=== PATIENT | female | born 1960 | race Caucasian/White ===

== ENCOUNTER 2018-09-28 13:54 | Observation (INO) ==
[2018-09-28 14:10] LABS: Bilirubin,Urine Negative (Negative); Blood,Urine Negative (Negative); Clarity,Urine Clear (Clear); Glucose,Urine (UA) Normal (Normal); Ketones,Urine Negative (Negative); Leukocyte Esterase,Urine Negative (Negative); Nitrite,Urine Negative (Negative); PH,Urine 8.5 pH Units (5.0-8.0); Protein,Urine Negative (Neg-Trace); Specific Gravity,Urine 1.015 (1.010-1.025); Urobilinogen,Urine Normal (Normal)
[2018-09-28] MEDS ORDERED: 0.9 % Sodium Chloride 1,000 ML IVC SCH (14:15)
[2018-09-28 14:16] LABS: Color,Urine Light Yellow (Yellow)
[2018-09-28 14:34] LABS: Basophils # 0.1 K/mcL (0.0-0.2); Basophils % 0.9 %; Eosinophils # 0.4 K/mcL (0.0-0.6); Eosinophils % 7.6 %; Immature Granulocytes % 0.6 % (0-4); Immature Reticulocyte % 25.9 % (11.0-38.0); Lymphocytes # 1.5 K/mcL (0.6-4.6); Lymphocytes % 26.9 %; Mean Corpuscular HGB Conc 26.1 g/dL (31.6-35.5); Mean Corpuscular Hemoglobin 15.9 pg (28.0-33.3); Mean Corpuscular Volume 60.8 fL (83.0-100.0); Mean Platelet Volume 8.6 fL (9.4-12.4); Monocytes # 0.7 K/mcL (0.0-1.3); Monocytes % 13.5 %; Neutrophils # 2.7 K/mcL (1.6-8.9); Platelet Count 321 K/mcL (140-400); Red Blood Count 3.78 M/mcL (3.82-4.97); Retculocyte # 0.07 M/mcL (0.05-0.10); Segmented Neutrophils % 50.5 %
[2018-09-28 14:40] LABS: INR 1.2; Prothrombin Time 13.4 Seconds (9.4-12.1)
[2018-09-28 14:42] LABS: Activated Partial Thrombo Time 33.2 Seconds (26.0-36.0)
[2018-09-28 14:47] LABS: Alanine Aminotransferase 11 Units/L (7-52); Albumin 4.5 g/dL (3.5-5.7); Albumin/Globulin Ratio 1.6 (1.1-2.2); Alkaline Phosphatase 82 Units/L (34-104); Aspartate Amino Transferase 15 Units/L (13-39); BUN/Creatinine Ratio 9 (6-26); Bilirubin,Total 0.4 mg/dL (0.3-1.0); Blood Urea Nitrogen 7 mg/dL (6-20); Calcium 9.3 mg/dL (8.6-10.3); Carbon Dioxide 24 mEq/L (23-29); Chloride 108 mEq/L (98-107); Globulin 2.8 g/dL (2.4-3.5); Glucose 75 mg/dL (70-105); Osmolality,Calculated 287 (280-300); Potassium 3.9 mEq/L (3.5-5.1); Sodium 140 mEq/L (136-145); Total Protein 7.3 g/dL (6.4-8.9); eGFR For Non-African Americans > 60 (> 60)
[2018-09-28 15:00] LABS: Anisocytosis 1+ (Not Present); Hypochromasia Present (Not Present); Microcytosis Present (Not Present); Poikilocytosis 1+ (Not Present); Polychromasia 1+ (Not Present); Target Cells 1+ (Not Present)
[2018-09-28] MEDS ORDERED: Naloxone 0.4 MG/ML INJ IVP PRN (15:53)
--- NOTE | 2018-09-28 15:56 | Emergency Department Note ---
Disposition Clinical Impression: Anemia Disposition: Admitted As Inpatient Condition: Good Referrals: Sony Lima CNP [Primary Care Provider] - General Adult HPI - General Chief complaint: ED Recheck/Abnormal Lab/Rx Stated complaint: abnormal labs, urinary frequency Time Seen by Provider: 09/28/18 14:00 Source: patient Mode of arrival: ambulatory Limitations: no limitations Nursing Notes Reviewed: Yes Vital Signs Reviewed: Yes - History of Present Illness Pain Scale: 0 - Related Data Home Medications Medication Instructions Recorded Confirmed OLANZapine [Zyprexa] 25 mg PO DAILY 05/05/17 09/28/18 Lisinopril-HCTZ 10-12.5 [Prinzide 1 each PO DAILY 08/16/17 09/28/18 10-12.5] Citalopram Hydrobromide [Celexa] 20 mg PO 09/28/18 Previous Rx's Medication Instructions Recorded Fluticasone Propionate Nasal 2 spray NS DAILY #1 bottle 07/09/18 [Flonase] Omeprazole [PriLOSEC] 40 mg PO DAILY #14 cap 07/09/18 Allergies Allergy/AdvReac Type Severity Reaction Status Date / Time No Known Allergies Allergy Verified 07/09/18 17:54 Past Medical History - Past Medical History Medical history: Reports: GERD, hyperlipidemia Surgical history: Reports: no surgical history Psychiatric history: Reports: anxiety, bipolar, depression, panic disorder, PTSD [employer] 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 - Social History Smoking Status: Current every day smoker Smokeless Tobacco Status: No Alcohol use: Reports: none Drug use: Reports: none Physical Exam - General Limitations: no limitations General appearance: alert Course Vital Signs Temperature 98.1 F 09/28/18 13:55 Pulse Rate 82 09/28/18 13:55 Respiratory Rate 18 09/28/18 13:55 Blood Pressure 144/65 09/28/18 13:55 O2 Sat by Pulse Oximetry 100 09/28/18 13:55 Temperature 98.1 F 09/28/18 13:55 Pulse Rate 82 09/28/18 13:55 Respiratory Rate 18 09/28/18 13:55 Blood Pressure 144/65 09/28/18 13:55 O2 Sat by Pulse Oximetry 100 09/28/18 13:55 Oxygen Delivery Oxygen Delivery Room Air Medical Decision Making - MDM Narrative Medical decision making narrative: I reviewed the patient's medication list I discussed the case with Dr. Shaver who is graciously accepted admission - Lab Data Lab results reviewed: Yes I reviewed the patient's lab results. - Radiology Data Radiology results reviewed: Yes I reviewed the patient's radiology results.
[2018-09-28 18:04] LABS: Ferritin < 8 ng/mL (10-120); Iron < 10 mcg/dL (50-170); Transferrin 460 mg/dL (203-362)
[2018-09-28] MEDS ORDERED: Mag Hydrox/Al Hydrox/Simeth 30 ML UDC PO PRN (18:38)
[2018-09-28] MEDS: Benzonatate 100 MG CAPSULE PO SCH (20:42)
[2018-09-28] MEDS: OLANZapine 10 MG TAB.RAPDIS PO SCH (20:42)
[2018-09-29] MEDS: 0.9 % Sodium Chloride 1,000 ML IVC SCH ×2 (05:52→21:15)
[2018-09-29 06:25] LABS: Basophils # 0.1 K/mcL (0.0-0.2); Basophils % 1.1 %; Eosinophils # 0.6 K/mcL (0.0-0.6); Eosinophils % 8.8 %; Hematocrit 31.5 % (35.3-44.9); Immature Granulocytes % 0.5 % (0-4); Lymphocytes # 1.8 K/mcL (0.6-4.6); Lymphocytes % 28.1 %; Mean Corpuscular HGB Conc 28.6 g/dL (31.6-35.5); Mean Corpuscular Hemoglobin 19.6 pg (28.0-33.3); Mean Corpuscular Volume 68.6 fL (83.0-100.0); Mean Platelet Volume 9.6 fL (9.4-12.4); Monocytes # 0.9 K/mcL (0.0-1.3); Monocytes % 13.7 %; Platelet Count 293 K/mcL (140-400); Red Blood Count 4.59 M/mcL (3.82-4.97); Red Cell Distribution Width 29.1 % (11.5-14.5); Segmented Neutrophils % 47.8 %
[2018-09-29 06:45] LABS: BUN/Creatinine Ratio 13 (6-26); Blood Urea Nitrogen 9 mg/dL (6-20); Calcium 8.7 mg/dL (8.6-10.3); Carbon Dioxide 21 mEq/L (23-29); Chloride 112 mEq/L (98-107); Glucose 90 mg/dL (70-105); Osmolality,Calculated 288 (280-300); Potassium 4.1 mEq/L (3.5-5.1); Sodium 140 mEq/L (136-145); eGFR For Non-African Americans > 60 (> 60)
[2018-09-29 06:51] LABS: Anisocytosis 2+ (Not Present); Hypochromasia Present (Not Present)
[2018-09-29 06:52] LABS: Microcytosis Present (Not Present); Platelet Estimate Normal (Normal)
[2018-09-29] MEDS ORDERED: Loratadine 10 MG TABLET PO SCH (09:00)
[2018-09-29] MEDS: Fluticasone Propionate Nasal 50 MCG/SPRAY BOTTLE NS SCH (09:06)
[2018-09-29] MEDS: Benzonatate 100 MG CAPSULE PO SCH ×2 (09:06→20:22)
--- NOTE | 2018-09-29 09:45 | Internal Med History&Physical ---
Date of Encounter: 09/29/18 Time of Encounter: 09:15 Assessment and Plan (1) Anemia Current visit: Yes Status: Acute Appears long-standing with severe microcytosis. She has received 2 units of packed red blood cells. Iron dextran infusion will be given. CT of abdomen will be done to further evaluate. Qualifiers: Anemia type: iron deficiency Iron deficiency anemia type: unspecified iron deficiency Qualified Code(s): D50.9 - Iron deficiency anemia, unspecified (2) Hypertension Current visit: Yes Status: Chronic She states she has not taken blood pressure medication for many months. Lisinopril/HCTZ has been restarted. Qualifiers: Hypertension type: essential hypertension Qualified Code(s): I10 - Essential (primary) hypertension (3) Vitamin D deficiency Current visit: Yes Status: Acute Vitamin D level returned low at 14. She will be started on supplemental vitamin D. (4) Anxiety Current visit: Yes Status: Acute Continue Zyprexa and Celexa. She states she also uses Vistaril but this is not listed on her home medication sheet. Internal Medicine - H&P: HPI Chief complaint: Anemia Admitted From: Emergency Dept Plans for Post Hospital Care: Home History of present illness: Ms. Alonzo is a 57 year old female who was directed to go to emergency room by staff at her PCP office after labs drawn earlier in the day showed hemoglobin 5.8. Evaluation in emergency room confirmed severe anemia with hemoglobin 6.0. She was admitted for blood transfusion and further workup. She denies melena, hematochezia, or hematemesis. She has self-induced vomiting several times per week for the last 18 months because of "abdominal discomfort" following ingestion of meals. She has used OTC Aleve approximately 3 pills per week in the last month. She states she previously used "a lot" of ibuprofen until 6 months ago when she discontinued it. She reports a history of peptic u lcer disease but denies EGD or colonoscopy. She has occasional GERD symptoms. She denies disorders of her liver gallbladder or exocrine pancreas. Stool in emergency room was negative for occult blood. Review of archived labs show microcytic anemia present since May 2017. It was not present on December 2014 labs. Past Med Surg Social Fam HX - Past Medical History Medical history: GERD, hyperlipidemia Psychiatric history: anxiety, bipolar, depression, panic disorder, PTSD - Past Surgical History Surgical History: no surgical history Additional surgical history: "stomach surgery" - Social History Smoking Status: Current every day smoker Smokeless Tobacco Status: No Alcohol use: none Drug use: none - Family History Mother History Unknown: Yes Internal Medicine - H&P: Meds OLANZapine [Zyprexa] 25 mg PO DAILY 05/05/17 [History] Lisinopril-HCTZ 10-12.5 [Prinzide 10-12.5] 1 each PO DAILY 08/16/17 [History] Fluticasone Propionate Nasal [Flonase] 2 spray NS DAILY #1 bottle 07/09/18 [Rx] Omeprazole [PriLOSEC] 40 mg PO DAILY #14 cap 07/09/18 [Rx] Citalopram Hydrobromide [Celexa] 20 mg PO 09/28/18 [History] Allergy/AdvReac Type Severity Reaction Status Date / Time No Known Allergies Allergy Verified 07/09/18 17:54 All Systems PM: A 10-system review of systems was performed and is negative for pertinent findings except as documented above in the HPI. Review of systems: Gen.: She states her weight has been stable for several months Cardiovascular: She has history of hypertension but denies AR heart failure angina DVT or pulmonary embolus Respiratory: She started smoking cigarettes at age 52. She states she smoked up to 4 packs per day but transitioned to cigars in the past 2 years. She denies known chronic lung disease. GI: As per history of present illness : She denies hematuria dysuria or kidney stones Neurologic: She denies large distribution strokes or seizures. Endocrine: She has hyperlipidemia but denies diabetes or thyroid disease Hematology/oncology: She denies internal malignancies or blood disorders. She has anemia as per history of present illness. Psychiatric: She has anxiety but denies depression or other mental health issues. She follows at [facility]. [place] skeletal: She has DJD but denies gout or other bone joint or muscle disorders. - Constitutional Vitals: Temp Pulse Resp BP Pulse Ox 98.0 F 68 16 157/87 96 09/29/18 06:34 09/29/18 06:34 09/29/18 06:34 09/29/18 06:34 09/29/18 06:34 Exam: Gen.: She is a well-developed well-nourished female resting comfortably in bed who appears in no acute distress. HEENT: Head is atraumatic and normocephalic. Eyes: EOMI. There is no scleral icterus. Mouth: Mucosa is moist. Neck: Supple and nontender. There is no thyromegaly or adenopathy noted. Heart: Regular without murmurs gallops or ectopics Lungs: No wheezes or crackles are heard. Abdomen: Bowel sounds are diminished. The abdomen is nontender to palpation. No masses or guarding are noted. Extremities: There is no cyanosis edema or clubbing noted. Dorsalis pedis and posttibial pulses are 1-2 over 2 bilaterally. Neurologic: Mental status: She is talkative and a fair to good historian. She d oes not remember some details of her medical history. Cranial nerves: Smile is symmetric. Forehead wrinkles bilaterally. Tongue protrudes midline. EOMI. Motor: There is no pronator drift. Cerebellar: Finger to nose is intact bilaterally. Skin: Warm and dry Internal Med - H&P Results - Labs CBC & Chem 7: 09/29/18 05:52 09/29/18 05:52 Labs: Short CBC 09/28/18 09/29/18 Range/Units 14:24 05:52 WBC 5.4 6.3 (4.3-11.1) K/mcL Hgb 6.0 L* 9.0 L D (11.5-15.4) g/dL Hct 23.0 L 31.5 L (35.3-44.9) % Plt Count 321 293 (140-400) K/mcL Neutrophils # 2.7 3.0 (1.6-8.9) K/mcL BMP 09/28/18 09/29/18 14:24 05:52 Sodium 140 140 Potassium 3.9 4.1 Chloride 108 H 112 H Carbon Dioxide 24 21 L BUN 7 9 Creatinine 0.80 0.71 Glucose 75 90 Calcium 9.3 8.7 Liver Function 09/28/18 Range/Units 14:24 Total Bilirubin 0.4 (0.3-1.0) mg/dL AST 15 (13-39) Units/L ALT 11 (7-52) Units/L Alkaline Phosphatase 82 (34-104) Units/L Albumin 4.5 (3.5-5.7) g/dL Urine 03/29/19 Range/Units 14:00 Urine Color Light Yellow (Yellow) Urine Clarity Clear (Clear) Urine pH 8.5 H (5.0-8.0) pH Units Ur Specific [place] 1.015 (1.010-1.025) Urine Protein Negative (Neg-Trace) mg/dL Urine Glucose (UA) Normal (Normal) mg/dL
[2018-09-29] MEDS: Cholecalciferol (D-3) 1,000 UNIT TABLET PO SCH (11:34)
[2018-09-29] MEDS ORDERED: SODIUM CHLORIDE 0.9% IVPB ONE (12:15)
[2018-09-29] MEDS ORDERED: IRON DEXTRAN COMPLEX IVPB ONE (12:15)
[2018-09-29] MEDS: OLANZapine 10 MG TAB.RAPDIS PO SCH (20:22)
[2018-09-29] MEDS: Nicotine 21 MG PATCH.TD24 TD SCH (21:15)
[2018-09-30 06:34] VITALS: BP 155/86
[2018-09-30 06:45] LABS: Basophils # 0.1 K/mcL (0.0-0.2); Basophils % 1.3 %; Eosinophils # 0.6 K/mcL (0.0-0.6); Eosinophils % 7.6 %; Hematocrit 34.1 % (35.3-44.9); Hemoglobin 9.7 g/dL (11.5-15.4); Immature Granulocytes % 2.3 % (0-4); Lymphocytes # 1.6 K/mcL (0.6-4.6); Lymphocytes % 21.1 %; Mean Corpuscular HGB Conc 28.4 g/dL (31.6-35.5); Mean Corpuscular Hemoglobin 19.6 pg (28.0-33.3); Mean Corpuscular Volume 68.9 fL (83.0-100.0); Nucleated Red Blood Cells 0.4 /100 WBC (0); Platelet Count 315 K/mcL (140-400); Red Blood Count 4.95 M/mcL (3.82-4.97); Red Cell Distribution Width 29.1 % (11.5-14.5); Segmented Neutrophils % 53.7 %
[2018-09-30] MEDS: 0.9 % Sodium Chloride 1,000 ML IVC SCH (07:31)
[2018-09-30] MEDS: Fluticasone Propionate Nasal 50 MCG/SPRAY BOTTLE NS SCH (07:37)
[2018-09-30] MEDS: Benzonatate 100 MG CAPSULE PO SCH (07:37)
[2018-09-30] MEDS: Nicotine 21 MG PATCH.TD24 TD SCH (07:37)
[2018-09-30 07:41] LABS: Anisocytosis 3+ (Not Present); Hypochromasia Present (Not Present); Poikilocytosis 2+ (Not Present)
[2018-09-30] MEDS: Cholecalciferol (D-3) 1,000 UNIT TABLET PO SCH (07:43)
[2018-09-30 07:45] LABS: Polychromasia 1+ (Not Present)
[2018-09-30 07:46] LABS: Microcytosis Present (Not Present); Platelet Estimate Normal (Normal)
--- NOTE | 2018-09-30 09:28 | Discharge Summary ---
Date of Encounter: 09/30/18 Time of Encounter: 09:20 - Discharge Diagnosis (1) Anemia Priority: Primary Status: Acute Qualifiers: Anemia type: iron deficiency Iron deficiency anemia type: unspecified iron deficiency Qualified Code(s): D50.9 - Iron deficiency anemia, unspecified (2) Hypertension Priority: Secondary Status: Chronic Qualifiers: Hypertension type: essential hypertension Qualified Code(s): I10 - Essential (primary) hypertension (3) Vitamin D deficiency Priority: Secondary Status: Chronic (4) Anxiety Priority: Secondary Status: Chronic Hospital course: Ms. Alonzo is a 57 year old female who was directed to go to emergency room by staff at her PCP office after labs drawn earlier in the day showed hemoglobin 5.8. Evaluation in emergency room confirmed severe anemia with hemoglobin 6.0. She was admitted for blood transfusion and further workup. Initial orders were written by the emergency room physician. I saw her on September 29 and performed a history and physical. She was transfused 2 units packed red blood cells. Anemia testing showed iron < 10, transferrin 460, ferritin < 8, folate 20.5, and B12 336. She was given IV iron dextran infusion. Her hemoglobin had risen to 9.7 by day of discharge. The etiology of her iron deficiency anemia was not establish with certainty. Stool in emergency room was guaiac negative. Abdominal CT showed no worrisome pathology. Her PCP can continue to monitor and/ or refer for further evaluation. Vitamin D level returned low at 14. She was started on supplemental vitamin D. When I saw her September 29 when she felt back to her baseline and wished to be discharged home. She will follow with her PCP Sony Lima CNP within 1 week. - Time Spent with Patient Total time spent providing and/or coordinating discharge services: - Discharge Medications Prescriptions: New Cholecalciferol (D-3) [Vitamin D] 2,000 unit PO DAILY #60 tablet Continue Fluticasone Propionate Nasal [Flonase] 2 spray NS DAILY #1 bottle Omeprazole [PriLOSEC] 40 mg PO DAILY #14 cap OLANZapine [Zyprexa] 25 mg PO DAILY Lisinopril-HCTZ 10-12.5 [Prinzide 10-12.5] 1 each PO DAILY Citalopram Hydrobromide [Celexa] 20 mg PO Home Medications: OLANZapine [Zyprexa] 25 mg PO DAILY 05/05/17 [History] Lisinopril-HCTZ 10-12.5 [Prinzide 10-12.5] 1 each PO DAILY 08/16/17 [History] Fluticasone Propionate Nasal [Flonase] 2 spray NS DAILY #1 bottle 07/09/18 [Rx] Omeprazole [PriLOSEC] 40 mg PO DAILY #14 cap 07/09/18 [Rx] Citalopram Hydrobromide [Celexa] 20 mg PO 09/28/18 [History] Cholecalciferol (D-3) [Vitamin D] 2,000 unit PO DAILY #60 tablet 09/30/18 [Rx] Allergies/Adverse Reactions: Allergy/AdvReac Type Severity Reaction Status Date / Time No Known Allergies Allergy Verified 07/09/18 17:54 Date of admission: 09/28/18 15:31 Primary care physician: Sony Lima CNP - Constitutional Vitals: Temp Pulse Resp BP Pulse Ox 97.6 F 79 16 155/86 94 09/30/18 06:32 09/30/18 06:32 09/30/18 06:32 09/30/18 06:32 09/30/18 06:32 - Patient Status Disposition: Home, Self-Care Condition: Good - Discharge Instructions Follow Up With: Sony Lima CNP [Primary Care Provider] - Forms: ED Satisfaction Letter - Diet and Activity Activity: resume usual activities as tolerated Diet: advance to your usual diet
== END 2018-09-30 10:22 | disposition home or self-care (01) ==
LOC: INPPIK 13:54 → EMEROOPIK 13:54 → INPPIK 16:03
PROVIDERS: ADMIT Internal Medicine; ATTEND Internal Medicine

== ENCOUNTER 2019-10-21 14:58 | Observation (INO) ==
[2019-10-21] MEDS ORDERED: Albuterol 2.5 MG/3 ML NEBULIZER IH ONE (15:08)
[2019-10-21] MEDS ORDERED: methylPREDNISolone 125 MG/2 ML VIAL IVP ONE (15:08)
[2019-10-21 15:34] LABS: Basophils # 0.1 K/mcL (0.0-0.2); Basophils % 0.6 %; Eosinophils # 0.7 K/mcL (0.0-0.6); Eosinophils % 6.8 %; Hematocrit 39.1 % (35.3-44.9); Hemoglobin 13.2 g/dL (11.5-15.4); Immature Granulocytes % 0.3 % (0-4); Lymphocytes # 2.4 K/mcL (0.6-4.6); Lymphocytes % 25.1 %; Mean Corpuscular HGB Conc 33.8 g/dL (31.6-35.5); Mean Corpuscular Hemoglobin 30.6 pg (28.0-33.3); Mean Corpuscular Volume 90.5 fL (83.0-100.0); Mean Platelet Volume 9.7 fL (9.4-12.4); Monocytes % 10.7 %; Neutrophils # 5.4 K/mcL (1.6-8.9); Platelet Count 276 K/mcL (140-400); Red Blood Count 4.32 M/mcL (3.82-4.97); Red Cell Distribution Width 13.7 % (11.5-14.5); Segmented Neutrophils % 56.5 %; White Blood Count 9.6 K/mcL (4.3-11.1)
[2019-10-21 15:52] LABS: BUN/Creatinine Ratio 12 (6-26); Blood Urea Nitrogen 15 mg/dL (6-20); Calcium 8.9 mg/dL (8.6-10.3); Carbon Dioxide 28 mEq/L (23-29); Chloride 102 mEq/L (98-107); Glucose 97 mg/dL (70-105); Osmolality,Calculated 289 (280-300); Potassium 3.8 mEq/L (3.5-5.1); Sodium 139 mEq/L (136-145); eGFR For African Americans 54 (> 60); eGFR For Non-African Americans 45 (> 60)
[2019-10-21 15:53] LABS: Troponin I < 0.03 ng/mL (< 0.04)
[2019-10-21] MEDS ORDERED: NON-FORMULARY MEDICATION 1 EACH EACH (Guaifenesin/Dm/Pseudoephedrine [Capmist Dm Tablet] 1 PO PRN (17:37)
[2019-10-21] MEDS ORDERED: Acetaminophen 325 MG TABLET PO PRN (17:40)
[2019-10-21] MEDS ORDERED: Naloxone 0.4 MG/ML INJ IVP PRN (17:40)
[2019-10-21] MEDS ORDERED: Mag Hydrox/Al Hydrox/Simeth 30 ML UDC PO PRN (17:40)
[2019-10-21] MEDS ORDERED: MOM Conc 10 ML UD.LIQ PO PRN (17:40)
[2019-10-21] MEDS ORDERED: Ondansetron 4 MG/2 ML VIAL IVP PRN (17:40)
[2019-10-21] MEDS ORDERED: levoFLOXacin 750 MG/150 ML 750 MG/150 ML BAG IVPB SCH ×2 (18:00)
[2019-10-21] MEDS: 0.9 % Sodium Chloride 1,000 ML IVC SCH (18:35)
[2019-10-21] MEDS: Nicotine 21 MG PATCH.TD24 TD SCH (18:36)
[2019-10-21] MEDS: hydrOXYzine pamoate 25 MG CAPSULE PO SCH (20:43)
[2019-10-21] MEDS: Ipratropium/Albuterol Neb 3 ML IH SCH (21:00)
[2019-10-21] MEDS ORDERED: Melatonin 3 MG TABLET PO SCH (21:00)
[2019-10-21] MEDS ORDERED: traZODone 50 MG TABLET PO SCH (21:00)
[2019-10-22] MEDS: MethylPREDNISolone 40 MG/ML VIAL IVP SCH ×3 (00:16→13:05)
[2019-10-22] MEDS: Ipratropium/Albuterol Neb 3 ML IH SCH ×4 (00:34→12:49)
[2019-10-22] MEDS: 0.9 % Sodium Chloride 1,000 ML IVC SCH (04:53)
[2019-10-22 06:49] LABS: Basophils % 0.1 %; Lymphocytes # 0.8 K/mcL (0.6-4.6); Lymphocytes % 6.7 %; Mean Corpuscular HGB Conc 33.3 g/dL (31.6-35.5); Mean Corpuscular Hemoglobin 30.6 pg (28.0-33.3); Mean Corpuscular Volume 91.8 fL (83.0-100.0); Mean Platelet Volume 10.1 fL (9.4-12.4); Monocytes # 0.4 K/mcL (0.0-1.3); Monocytes % 2.8 %; Platelet Count 256 K/mcL (140-400); Red Blood Count 3.92 M/mcL (3.82-4.97); Red Cell Distribution Width 13.7 % (11.5-14.5); Segmented Neutrophils % 89.4 %; White Blood Count 12.5 K/mcL (4.3-11.1)
[2019-10-22 06:53] LABS: Neutrophils # 11.2 K/mcL (1.6-8.9)
[2019-10-22 07:06] LABS: BUN/Creatinine Ratio 13 (6-26); Blood Urea Nitrogen 14 mg/dL (6-20); Calcium 8.7 mg/dL (8.6-10.3); Carbon Dioxide 25 mEq/L (23-29); Chloride 102 mEq/L (98-107); Glucose 253 mg/dL (70-105); Osmolality,Calculated 293 (280-300); Potassium 3.5 mEq/L (3.5-5.1); Sodium 137 mEq/L (136-145); eGFR For African Americans > 60 (> 60); eGFR For Non-African Americans 54 (> 60)
[2019-10-22] MEDS: Nicotine 21 MG PATCH.TD24 TD SCH (08:09)
[2019-10-22] MEDS: hydrOXYzine pamoate 25 MG CAPSULE PO SCH (08:10)
[2019-10-22] MEDS ORDERED: OLANZapine 10 MG TAB.RAPDIS PO SCH (09:00)
[2019-10-22] MEDS ORDERED: Loratadine 10 MG TABLET PO SCH (09:00)
[2019-10-22 10:47] LABS: Bilirubin,Urine Negative (Negative); Blood,Urine Trace-intact (Negative); Clarity,Urine Clear (Clear); Color,Urine Yellow (Yellow); Glucose,Urine (UA) 500 mg/dL (Normal); Ketones,Urine Negative (Negative); Leukocyte Esterase,Urine Negative (Negative); Nitrite,Urine Negative (Negative); Protein,Urine Negative (Neg-Trace); Specific Gravity,Urine 1.015 (1.010-1.025); Urobilinogen,Urine Normal (Normal)
[2019-10-22 11:22] VITALS: BP 143/82
[2019-10-22] MEDS ORDERED: *HR* Heparin 5,000 UNIT/ML VIAL SQ SCH (14:00)
== END 2019-10-22 13:48 | disposition home or self-care (01) ==
LOC: EMEROOPIK 14:58 → INPPIK 14:58
PROVIDERS: ADMIT Family Medicine; ATTEND Family Medicine